=== PATIENT | male | born 1955 | race Caucasian/White ===

== ENCOUNTER 2018-09-17 10:51 | Emergency (ER) | payer OTHER ==
[~2018-09-17] VITALS: Ht 180.3 cm; Wt 95.7 kg
[2018-09-17] MEDS ORDERED: GLUCOTROL5 MG PO (11:03)
[2018-09-17] MEDS ORDERED: METFORMIN HCL500 MG PO (11:03)
[2018-09-17] MEDS ORDERED: IBUPROFEN 600600 M1 PO (12:35)
[2018-09-17] MEDS ORDERED: KEFLEX500 M1 PO (12:35)
[2018-09-17 12:46] VITALS: BP 188/77
== END 2018-09-17 12:46 | disposition home or self-care (01) ==
LOC: M.ERS 10:51
DX: S62.637A Displaced fracture of distal phalanx of left little finger, initial encounter for closed fracture (principal); E11.9 Type 2 diabetes mellitus without complications; Z88.8 Allergy status to other drugs, medicaments and biological substances; X58.XXXA Exposure to other specified factors, initial encounter; Y93.89 Activity, other specified; Y92.89 Other specified places as the place of occurrence of the external cause; Y99.8 Other external cause status